=== PATIENT | female | born 1995 | race Caucasian/White ===

== ENCOUNTER 2022-06-20 15:35 | Emergency (ER) | payer BC ==
[~2022-06-20] VITALS: Ht 165.1 cm; Wt 59.6 kg
[2022-06-20 15:50] VITALS: BP 117/77
[2022-06-20 16:00] VITALS: BP 122/74
[2022-06-20 16:15] VITALS: BP 126/75
[2022-06-20 16:30] VITALS: BP 106/76
[2022-06-20] MEDS ORDERED: CEPHALEXIN500 M1 PO (16:31)
== END 2022-06-20 16:45 | disposition home or self-care (01) | DRG 605 ==
LOC: ED 15:35
PROC: 0HQLXZZ Repair Left Lower Leg Skin, External Approach (ICD-10-PCS; principal; 2022-06-20)
DX: S81.012A Laceration without foreign body, left knee, initial encounter (principal); W22.8XXA Striking against or struck by other objects, initial encounter